=== PATIENT | female | born 1965 | race Caucasian/White ===

== ENCOUNTER 2025-01-02 08:46 | Emergency (ER) | payer BC, SELFPAY ==
[2025-01-02 08:55] VITALS: BP 127/86
--- NOTE | 2025-01-02 09:12 | EDRN ---
Pt in BR attempting urine spec at this time.
--- NOTE | 2025-01-02 09:15 | EDRN ---
Dr. Yao in room w/ pt.
--- NOTE | 2025-01-02 09:27 | ED.GENMED ---
History of Present Illness
General
Chief Complaint: Dizziness
Time Seen by Provider: 01/02/25 09:16
History of Present Illness
History of Present Illness:
Patient is a 59-year-old woman with history of anorexia, depression presenting to the emergency department feeling unwell. Patient is for the past week she has been having nausea mild posterior headache fatigue weakness chills decreased p.o. She
states that when she exerts herself she becomes short of breath and dizzy. Denies any chest pain. No palpitations. No leg swelling or hemoptysis. No vomiting. She has been constipated. No prior abdominal surgeries. No URI symptoms. She
denies any numbness tingling or weakness
Phy Exam
Physical Exam
Physical Exam:
GENERAL: in no acute distress
HEENT: normocephalic, extraocular movements intact, dry oral mucosa
NECK: normal inspection
RESPIRATORY: no respiratory distress, clear to auscultation bilaterally
CARDIOVASCULAR: regular rate and rhythm
ABDOMEN/: soft, non-distended, mild diffuse tenderness worse in the suprapubic region, no rebound or guarding
EXTREMITIES: non-tender, no edema/swelling
NEUROLOGIC: awake and alert, moves all extremities, equal strength in upper and lower extremities, sensation intact
SKIN: warm
Course
Orders/Labs/Results
Orders:
Orders
01/02/25 09:10
IV Insert/Care/Rem.- Treatment PRN
01/02/25 09:12
Electrocardiogram (*1) Urgent
Reason for Study: Chest Pain
Cardiac Monitoring- Treatment ONCE
EKG- Treatment ONCE
01/02/25 09:26
CT Abd/pelvis W Iv Cont Urgent
Comment:
Reason For Exam: nausea, abd pain
0.9% Sodium Chloride 1000 ml [Nss] 1,000 ml IV BOLUS
01/02/25 09:28
COVID-19 Antigen Urgent
Source: Nasal Swab
Complete Blood Count/With Diff Urgent
Lactic Acid Urgent
Influenza A+B Rapid Molecular Urgent
KASANDRA Source: Nasal Swab
Specimen Description:
01/02/25 09:29
Comprehensive Metabolic Panel Urgent
Magnesium Urgent
01/02/25 09:34
Urinalysis Reflex To Culture Urgent
Date Specimen was Collected: 01/02/25
Time Specimen was Collected: 09:27
01/02/25 11:02
Metoclopramide [Reglan] 10 mg IV NOW STA
Abnormal Lab Results
01/02/25 01/02/25 01/02/25
09:28 09:29 09:34
MCH 33.5 H pg
(27.0-31.0)
Absolute Lymphs (auto) 1.0 L 10^3/uL
(1.2-3.4)
Lymphocytes % 17.6 L %
(20.5-51.1)
Sodium 133 L mmol/L
(135-145)
Carbon Dioxide 19 L mmol/L
(22-30)
Glucose 117 H mg/dl
(70-99)
Magnesium 2.4 H mg/dl
(1.6-2.3)
Urine Ketones 1+ A
(Negative)
01/02/25 09:28
01/02/25 09:29
Vital Signs
Initial and Last Documented VS:
Initial Vital Signs
Temp Pulse Resp BP Pulse Ox
98.7 F 102 16 127/86 100
01/02/25 08:55 01/02/25 08:55 01/02/25 08:55 01/02/25 08:55 01/02/25 08:55
Last Documented Vital Signs
Temp Pulse Resp BP Pulse Ox
98.7 F 104 21 126/89 100
01/02/25 08:55 01/02/25 12:15 01/02/25 12:15 01/02/25 12:00 01/02/25 12:15
MDM/Problems Addressed
Differential Diagnosis Includes:
Patient is a 59-year-old woman with 1 week of generalized fatigue nausea headache weakness and dizziness upon exertion. Vitals are notable for heart rate in the 90s to 100. On exam she does have significantly dry oral mucosa and diffuse abdominal
tenderness worse in the suprapubic region. Differential is broad but consists of viral illness versus dehydration versus metabolic derangement versus malignancy or diverticulitis. The headache does not have any red flags such as sudden onset
thunderclap or headache of her life or associated with any meningismus. Will check blood work urine EKG CT scan of the abdomen. Will give IV fluids and obtain respiratory swabs.
*Critical Care Note
Total Time (30-74mins, 75-104mins- exclusive of procedures): Not Applicable
Update Note
Update Note:
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 Blood work notable for slightly low bicarb and urine positive for ketones. Likely starvation ketosis. She has been given IV fluids and is
tolerating p.o. She has been ambulatory without any recurrent symptoms. Patient advised to start taking MiraLAX to help with the constipation. Will discharge patient at this time. Strict return precautions given.
ED Attending Note
-
Portions of this chart may have been created with voice recognition software.� Occasional wrong word or��sound alike� substitutions may have occurred due to the inherent limitations of voice recognition software.
Discharge Plan
Departure
Patient Disposition: Home (Routine Discharge)
Date of Disposition: 01/02/25
Time of Disposition: 12:28
Patient with high blood pressure during this ER visit?: No
Discharge Problem:
Nausea, Dehydration, Constipation
Instructions: Constipation, Adult (DC)
Prescriptions:
No Action
penicillin V potassium 500 mg tablet
500 mg PO TID 7 Days Qty: 21 0RF
Referrals:
Derrek Lorenzana MD [Family Provider] -
Interventions
Interventions:
*Risk Screen - Suicide Last Done: 01/02/25 08:55
*General Assessment Last Done: 01/02/25 08:55
*Neglect/Abuse Screening Last Done: 01/02/25 08:55
*ED- Fall Risk Assessment Last Done: 01/02/25 08:55
*ED COVID-19 Vaccine History Last Done: 01/02/25 08:55
ED- Neurological Assessment Last Done: 01/02/25 09:56
ED- Cardiac Assessment Last Done: 01/02/25 09:56
N[place]-Wblfqc-Ufpcexrwfz Assessment Last Done: 01/02/25 09:56
ED Swallowing Screen Last Done: 01/02/25 09:06
Discharge Date and Time
Print Language: JAMAICAN
[2025-01-02 09:43] LABS: % Basophils 0.7 % (0-2); % Eosinophils 1.4 % (0-6); % Immature Granulocytes 0.3 % (0-0.5); % Lymphocytes 17.6 % (20.5-51.1); % Monocytes 7.1 % (1.7-9.3); % Neutrophils 72.9 % (42.2-75.2); Absolute Eosinophils 0.1 10^3/uL (0-0.7); Absolute Monocytes 0.4 10^3/uL (0.1-0.6); Absolute Neutrophils 4.3 10^3/uL (1.4-6.5); Hematocrit 40.1 % (37.0-47.0); Hemoglobin 14.2 g/dL (12.0-16.0); Mean Corp Hgb Conc. 35.4 g/dL (33.0-37.0); Mean Corpuscular Hgb 33.5 pg (27.0-31.0); Mean Corpuscular Volume 94.6 fL (81.0-99.0); Mean Platelet Volume 9.3 fL (7.4-10.4); Nucleated Red Blood Cells % 0 %; Platelet Count 285 10^3/uL (130-400); Red Blood Cell Count 4.24 10^6/uL (4.20-5.40); Red Cell Dist. Width 12.2 % (11.5-14.5); White Blood Cell Count 5.9 10^3/uL (4.8-10.8)
[2025-01-02 09:44] LABS: Urine Albumin Negative (Neg - Trace); Urine Bilirubin Negative (Negative); Urine Character Clear (Clear); Urine Color Yellow; Urine Glucose Negative (Negative); Urine Ketone 1+ (Negative); Urine Leukocyte Negative (Negative); Urine Nitrite Negative (Negative); Urine Occult Blood Negative (Negative); Urine Urobilinogen Negative (Neg - 1+)
[2025-01-02 09:55] LABS: Lactic Acid 1.4 mmol/L (0.7-2.0)
[2025-01-02 09:56] LABS: ALT (SGPT) 15 U/L (0-35); AST (SGOT) 18 U/L (14-36); Albumin 4.6 g/dl (3.5-5.0); Alkaline Phosphatase 63 U/L (38-126); Blood Urea Nitrogen 9 mg/dl (7-17); Carbon Dioxide 19 mmol/L (22-30); Chloride 102 mmol/L (98-107); Estimated Creatinine Clearance 56 ml/min; Glucose 117 mg/dl (70-99); Magnesium 2.4 mg/dl (1.6-2.3); Potassium 4.3 mmol/L (3.5-5.1); Sodium 133 mmol/L (135-145); Total Bilirubin 0.9 mg/dl (0.2-1.3); Total Protein 7.2 g/dl (6.3-8.2); eGFR > 60.00
[2025-01-02 10:01] VITALS: BP 132/99
[2025-01-02 10:01] LABS: COVID-19 Antigen Negative (Negative)
[2025-01-02] MEDS: NSS 1000 IV (11:20)
[2025-01-02] MEDS: REGLAN 10 MG IV (11:21)
[2025-01-02 11:23] VITALS: BP 130/83
[2025-01-02 12:00] VITALS: BP 126/89
--- NOTE | 2025-01-02 12:18 | EDRN ---
Pt states she has been drinking okay though still has nausea, saying it has not gone away. Dr. Yao informed via TT at this time. Pt speaking w/ someone on cell phone at this time looking very comfortable on stretcher.
== END 2025-01-02 12:55 | disposition home or self-care (01) ==
LOC: EMR 08:46
PROVIDERS: Emergency Medicine; EMERGENCY PHYSICIAN Student in an Organized Health Care Education/Training Program; FAMILY PHYSICIAN Internal Medicine
DX: E86.0 Dehydration (principal); R11.0 Nausea; K59.00 Constipation, unspecified; Z11.52 Encounter for screening for COVID-19
CPT/HCPCS: 99284; 96374; 96361; 74177; 80053; 81003; 83605; 83735; 85025; 87502; 87811; 93005; Q9967

== ENCOUNTER 2025-01-27 15:51 | Emergency (ER) | payer BC, SELFPAY ==
[2025-01-27 15:58] VITALS: BP 142/94
[2025-01-27 16:38] VITALS: BMI 19.4
[2025-01-27 16:42] VITALS: BP 137/85
--- NOTE | 2025-01-27 16:56 | ED.GENMED ---
History of Present Illness
<YANNI Dawson - Last Filed: 01/28/25 18:37>
General
Chief Complaint: Abdominal Symptoms
Source: patient
Exam Limitations: none
Time Seen by Provider: 01/27/25 16:29
Nursing documentation reviewed up to this point in time: agreed with
History of Present Illness
History of Present Illness:
Patient is a 59-year-old female with past medical history of anorexia chronic constipation anxiety depression who presents to the ER with complaint of persistent nausea and abdominal bloating/discomfort. She reports she has had nausea /abdominal
bloating for the past month and a half. She was seen here for nausea and abdominal pain January 02 and had a CAT scan. 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
She has been to urgent care several times and also has been diagnosed with constipation and has been taking MiraLAX. She last had a bowel movement several days ago.
She has been taking Zofran for the nausea sometimes it helps and sometimes it does not.
She has never had a colonoscopy.
In addition to nausea pt has also had a headache for the past one month as well.
Review of Systems
<YANNI Dawson - Last Filed: 01/28/25 18:37>
Review of Systems
Allergies reviewed?: Yes
All Other Systems: ROS reviewed and negative except as documented in HPI and ROS
Constitutional: Reports no symptoms; Denies fever, fatigue or chills
EENT: Reports no symptoms
Respiratory: Reports no symptoms
Cardiac: Reports no symptoms
ABD/GI: Reports nausea, constipated and other (abdominal bloating )
: Reports no symptoms
Musculoskeletal: Reports no symptoms
Skin: Reports no symptoms
Neurological: Reports no symptoms
Hematologic/Lymphatic: Reports no symptoms
Psychiatric: Reports no symptoms
Phy Exam
<YANNI Dawson - Last Filed: 01/28/25 18:37>
General Physical Exam
General Presentation: no apparent distress
General age: appears stated age
General Skin: warm and dry
General Habitus: elderly
General Mental: alert
General Hydration: dry mucous membranes
ENT Exam
ENT Exam: EOMI and neck supple
Cardiovascular Exam
Cardiovascular Exam: regular rate/rhythm, no murmur and normal peripheral pulses
Pulmonary Exam
Pulmonary Exam: lungs clear and no respiratory distress
Gastrointestinal Exam
Gastrointestinal Exam: non tender and soft
Neurological Exam
Neurological Exam: alert and oriented x3
Musculoskeletal Exam
Musculoskeletal Exam: full ROM
Skin Exam
Skin Exam: normal color and warm/dry
Psychiatric Exam
Psychiatric Exam: normal mood/affect
Course
<YANNI Dawson - Last Filed: 01/28/25 18:37>
Orders/Labs/Results
Orders:
Orders
01/27/25 16:50
CMP [Comprehensive Metabolic Panel] Urgent
Complete Blood Count/With Diff Urgent
01/27/25 17:13
IV Insert/Care/Rem.- Treatment PRN
0.9% Sodium Chloride 1000 ml [Nss] 1,000 ml IV BOLUS
Ondansetron Injectable [Zofran] 4 mg IV NOW STA
01/27/25 17:14
CT Head W/o Iv Contrast Urgent
Comment:
Reason For Exam: headache/nausea
01/27/25 17:58
Urinalysis Reflex To Culture Urgent
Date Specimen was Collected: 01/27/25
Time Specimen was Collected: 17:50
Urine Microscopic Reflex Cult Urgent
Urine Culture Urgent
KASANDRA Source: U
Specimen Description:
Date Specimen was Collected: 01/27/25
Time Specimen was Collected: 17:50
01/27/25 17:59
Electrocardiogram (*1) Stat
Reason for Study: Other
Other Reason for Exam: chest pain
EKG- Treatment ONCE
01/27/25 18:29
Diphenhydramine [Benadryl] 25 mg IV NOW STA
Metoclopramide [Reglan] 10 mg IV NOW STA
Abnormal Lab Results
01/27/25 01/27/25
16:50 17:58
RBC 4.01 L 10^6/uL
(4.20-5.40)
MCH 33.9 H pg
(27.0-31.0)
Absolute Lymphs (auto) 1.1 L 10^3/uL
(1.2-3.4)
Lymphocytes % 19.9 L %
(20.5-51.1)
Monocytes % 10.1 H %
(1.7-9.3)
Leukocyte Esterase Rfl 1+ A
(Negative)
Urine Bacteria (Reflex) Many A
(Negative)
Urine Albumin (Reflex) 1+ A
(Neg - Trace)
01/27/25 16:50
01/27/25 16:50
Vital Signs
Initial and Last Documented VS:
Initial Vital Signs
Temp Pulse Resp BP Pulse Ox
97.8 F 102 16 142/94 100
01/27/25 15:58 01/27/25 15:58 01/27/25 15:58 01/27/25 15:58 01/27/25 15:58
Last Documented Vital Signs
Temp Pulse Resp BP Pulse Ox
97.8 F 90 18 125/89 100
01/27/25 15:58 01/27/25 19:25 01/27/25 19:25 01/27/25 19:25 01/27/25 19:25
Junior Web Designer consulted with Physician
Junior Web Designer consulted with physician?: Yes
Name of Physician Consulted: Denia
<Mena Loza MD - Last Filed: 04/02/25 19:55>
Orders/Labs/Results
Orders:
Orders
01/27/25 16:50
CMP [Comprehensive Metabolic Panel] Urgent
Complete Blood Count/With Diff Urgent
01/27/25 17:13
IV Insert/Care/Rem.- Treatment PRN
0.9% Sodium Chloride 1000 ml [Nss] 1,000 ml IV BOLUS
Ondansetron Injectable [Zofran] 4 mg IV NOW STA
01/27/25 17:14
CT Head W/o Iv Contrast Urgent
Comment:
Reason For Exam: headache/nausea
01/27/25 17:58
Urinalysis Reflex To Culture Urgent
Date Specimen was Collected: 01/27/25
Time Specimen was Collected: 17:50
Urine Microscopic Reflex Cult Urgent
Urine Culture Urgent
KASANDRA Source: U
Specimen Description:
Date Specimen was Collected: 01/27/25
Time Specimen was Collected: 17:50
01/27/25 17:59
Electrocardiogram (*1) Stat
Reason for Study: Other
Other Reason for Exam: chest pain
EKG- Treatment ONCE
01/27/25 18:29
Diphenhydramine [Benadryl] 25 mg IV NOW STA
Metoclopramide [Reglan] 10 mg IV NOW STA
Abnormal Lab Results
01/27/25 01/27/25
16:50 17:58
RBC 4.01 L 10^6/uL
(4.20-5.40)
MCH 33.9 H pg
(27.0-31.0)
Absolute Lymphs (auto) 1.1 L 10^3/uL
(1.2-3.4)
Lymphocytes % 19.9 L %
(20.5-51.1)
Monocytes % 10.1 H %
(1.7-9.3)
Leukocyte Esterase Rfl 1+ A
(Negative)
Urine Bacteria (Reflex) Many A
(Negative)
Urine Albumin (Reflex) 1+ A
(Neg - Trace)
01/27/25 16:50
01/27/25 16:50
Vital Signs
Initial and Last Documented VS:
Initial Vital Signs
Temp Pulse Resp BP Pulse Ox
97.8 F 102 16 142/94 100
01/27/25 15:58 01/27/25 15:58 01/27/25 15:58 01/27/25 15:58 01/27/25 15:58
Last Documented Vital Signs
Temp Pulse Resp BP Pulse Ox
97.8 F 90 18 125/89 100
01/27/25 15:58 01/27/25 19:25 01/27/25 19:25 01/27/25 19:25 01/27/25 19:25
<YANNI Dawson - Last Filed: 01/28/25 18:37>
MDM/Problems Addressed
MDM/Problems Addressed:
Patient is document is a 59-year-old female who presents for nausea and intermittent constipation for the past month and a half. She was seen here January 02 and had abdominal CAT scan. Despite Zofran at home she still is intermittently nauseous.
She has not seen her family doctor who currently is in [place] she resides here. She has not been seen by GI specialist. She presents awake alert no acute distress flat affect tearful. CAT scan was reviewed from January 02 which does not show
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 She continues to complain of headache that she feels is associate with nausea. She has a normal neurologic exam no acute findings on CAT
scan however there are calcifications in the lateral ventricles and fourth ventricle which may be secondary to prior hemorrhage or infection or possibly physiologic consider MRI for outpatient is recommended. Patient will need to follow-up with a
family doctor for this is also recommended that she follow-up with GI. Patient was given Reglan for nausea and fluids. she is afebrile with a normal white count stable hemoglobin normal chemistries no acute infection urine. CAT scan was not
repeated of abdomen today she mainly complains of nausea and whether she simply constipated she is taking MiraLAX and has moving her bowels quite frequently.
Patient received Reglan here and fluids,
I did review with the patient the importance of following up for CAT scan of her head with her family doctor. she does have an upcoming appointment with a family doctor scheduled. In addition we will place patient with a GI hotline. She does
have Zofran at home.
No acute cause of patient's symptoms identified here but she will need further workup. I did review this with her. Patient was evaluated physician.
<YANNI Dawson - Last Filed: 01/28/25 18:37>
*Pulse Oximetry
Patient hypoxic: no
*Critical Care Note
Total Time (30-74mins, 75-104mins- exclusive of procedures): Not Applicable
Data Reviewed
Review of Other/Old Records Reveals: Labs, Radiology Studies and Other (Prior ED visit )
ED Attending Note
<YANNI Dawson - Last Filed: 01/28/25 18:37>
-
Portions of this chart may have been created with voice recognition software.� Occasional wrong word or��sound alike� substitutions may have occurred due to the inherent limitations of voice recognition software.
<Mena Loza MD - Last Filed: 01/27/25 19:55>
ED Attending Note
Patient seen and examined by attending physician: Yes
I performed the substantive portion of visit, reviewed & personally made and approve the management plan that is documented in note by myself or DAVE.: Yes
Discharge Plan
Departure
Patient Disposition: Home (Routine Discharge)
Date of Disposition: 01/27/25
Time of Disposition: 19:41
Patient with high blood pressure during this ER visit?: Yes
Condition: Fair
Covid-19: Not Applicable
Discharge Problem:
Nausea, Headache
Instructions: Nausea and Vomiting, Adult (DC), Headache in adults - ED discharge instructions, BLOOD PRESSURE
Prescriptions:
No Action
bupropion HCl 150 mg Tablet Sustained-Release 12 Hr
150 mg PO TID
ibuprofen [Advil] 200 mg Tablet
200 mg PO Q6HPRN PRN (Reason: mild pain)
ondansetron 4 mg Tablet,Disintegrating
4 mg PO Q6HPRN PRN (Reason: nausea)
loratadine 10 mg Tablet
10 mg PO DAILYPRN PRN (Reason: allergies)
Referrals:
Derrek Lorenzana MD [Family Provider] -
Donya Valdez MD [Active] -
Activity Restrictions/Additional Instructions:
As discussed please follow-up with your family doctor as scheduled.
Please review your CAT scan findings with your family doctor; it is likely you may need further additional testing including outpatient MRI.
Also please follow-up with GI. The GI frontend engineer may call you however if you do not receive a phone call from the GI frontend engineer please give the GI office a call to schedule an appointment as soon as possible.
Return if any worsening of symptoms
Interventions
Interventions:
*Risk Screen - Suicide Last Done: 01/27/25 16:39
*General Assessment Last Done: 01/27/25 16:39
*Neglect/Abuse Screening Last Done: 01/27/25 16:39
*ED- Fall Risk Assessment Last Done: 01/27/25 16:39
*ED COVID-19 Vaccine History Last Done: 01/27/25 16:39
*Nursing Disposition Last Done: 01/27/25 20:24
UI-Kbwsqw-Lygvfcvptc Assessment Last Done: 01/27/25 16:45
Discharge Date and Time
Discharge Date/Time: 01/27/25 20:25
Print Language: FINNISH
[2025-01-27 17:06] LABS: % Basophils 0.9 % (0-2); % Eosinophils 2.9 % (0-6); % Immature Granulocytes 0.4 % (0-0.5); % Lymphocytes 19.9 % (20.5-51.1); % Monocytes 10.1 % (1.7-9.3); % Neutrophils 65.8 % (42.2-75.2); Absolute Basophils 0.1 10^3/uL (0-0.2); Absolute Eosinophils 0.2 10^3/uL (0-0.7); Absolute Lymphocytes 1.1 10^3/uL (1.2-3.4); Absolute Monocytes 0.6 10^3/uL (0.1-0.6); Absolute Neutrophils 3.6 10^3/uL (1.4-6.5); Hematocrit 38.1 % (37.0-47.0); Hemoglobin 13.6 g/dL (12.0-16.0); Mean Corp Hgb Conc. 35.7 g/dL (33.0-37.0); Mean Corpuscular Hgb 33.9 pg (27.0-31.0); Mean Platelet Volume 9.4 fL (7.4-10.4); Nucleated Red Blood Cells % 0 %; Platelet Count 248 10^3/uL (130-400); Red Blood Cell Count 4.01 10^6/uL (4.20-5.40); Red Cell Dist. Width 12.1 % (11.5-14.5); White Blood Cell Count 5.5 10^3/uL (4.8-10.8)
[2025-01-27 17:13] LABS: ALT (SGPT) 14 U/L (0-35); AST (SGOT) 17 U/L (14-36); Albumin 4.1 g/dl (3.5-5.0); Alkaline Phosphatase 50 U/L (38-126); Blood Urea Nitrogen 12 mg/dl (7-17); Calcium 9.6 mg/dl (8.4-10.2); Carbon Dioxide 24 mmol/L (22-30); Chloride 105 mmol/L (98-107); Estimated Creatinine Clearance 55 ml/min; Glucose 95 mg/dl (70-99); Potassium 3.7 mmol/L (3.5-5.1); Sodium 138 mmol/L (135-145); Total Bilirubin 0.7 mg/dl (0.2-1.3); Total Protein 6.5 g/dl (6.3-8.2); eGFR > 60.00
[2025-01-27 17:52] VITALS: BP 127/82
[2025-01-27] MEDS: NSS 1000 IV (17:55)
[2025-01-27 18:11] LABS: Urine Albumin 1+ (Neg - Trace); Urine Bilirubin Negative (Negative); Urine Character Clear (Clear); Urine Color Yellow; Urine Glucose Negative (Negative); Urine Ketone Negative (Negative); Urine Leukocyte 1+ (Negative); Urine Nitrite Negative (Negative); Urine Occult Blood Negative (Negative); Urine Urobilinogen Negative (Neg - 1+)
[2025-01-27 18:19] LABS: Urine Squamous Cell 0-2 /LPF (Few)
[2025-01-27 18:20] LABS: Urine Bacteria Many (Negative); Urine Calcium Oxalate Crystals Present; Urine Red Blood Cell 0-2 /HPF (0-2)
[2025-01-27] MEDS: REGLAN 10 MG IV (18:43)
[2025-01-27 19:25] VITALS: BP 125/89
== END 2025-01-27 20:25 | disposition home or self-care (01) ==
LOC: EMR 15:51
PROVIDERS: Nurse Practitioner; EMERGENCY PHYSICIAN Emergency Medicine; FAMILY PHYSICIAN Internal Medicine
DX: R11.0 Nausea (principal); R51.9 Headache, unspecified; K59.00 Constipation, unspecified
CPT/HCPCS: 96374; 96361; 99284; 70450; 80053; 81003; 81015; 85025; 87086; 93005

== ENCOUNTER 2025-02-17 06:27 | Day surgery (SDC) | payer BC, SELFPAY | END 2025-02-17 13:51 | disposition home or self-care (01) | LOC: GI 06:27 | PROVIDERS: ATTENDING PHYSICIAN Internal Medicine Gastroenterology | DX: R10.13 Epigastric pain (principal); R11.0 Nausea; R63.4 Abnormal weight loss; K44.9 Diaphragmatic hernia without obstruction or gangrene | CPT/HCPCS: 43235 ==

== ENCOUNTER 2025-02-26 13:50 | Emergency (ER) | payer BC, SELFPAY ==
[2025-02-26 13:52] VITALS: BP 131/95
--- NOTE | 2025-02-26 16:22 | ED.GENMED ---
History of Present Illness
General
Chief Complaint: Anxiety
Source: patient
Exam Limitations: none
Time Seen by Provider: 02/26/25 16:00
History of Present Illness
History of Present Illness:
See MDM
Past History
Past History
ED Past Medical History: Psychiatric
ED Past Surgical History: Other (Dental)
Social History
Tobacco: Non-smoker
Alcohol: None
Phy Exam
Physical Exam
Physical Exam:
See MDM
Course
Orders/Labs/Results
Orders:
Orders
02/26/25 16:20
Crisis Consult Urgent
Reason for Consult: depression
0.9% Sodium Chloride 1000 ml [Nss] 1,000 ml IV BOLUS
Lorazepam [Ativan] 0.5 mg IV NOW STA
02/26/25 16:21
Electrocardiogram (*1) Urgent
Reason for Study: Chest Pain
EKG- Treatment ONCE
02/26/25 16:34
Complete Blood Count/With Diff Urgent
Comprehensive Metabolic Panel Urgent
Magnesium Urgent
Abnormal Lab Results
02/26/25
16:34
RBC 4.03 L 10^6/uL
(4.20-5.40)
MCH 33.7 H pg
(27.0-31.0)
Absolute Lymphs (auto) 1.1 L 10^3/uL
(1.2-3.4)
Lymphocytes % 17.9 L %
(20.5-51.1)
Monocytes % 9.4 H %
(1.7-9.3)
Glucose 136 H mg/dl
(70-99)
Magnesium 2.4 H mg/dl
(1.6-2.3)
02/26/25 16:34
02/26/25 16:34
Vital Signs
Initial and Last Documented VS:
Initial Vital Signs
Temp Pulse Resp BP Pulse Ox
98.2 F 113 16 131/95 97
02/26/25 13:52 02/26/25 13:52 02/26/25 13:52 02/26/25 13:52 02/26/25 13:52
Last Documented Vital Signs
Temp Pulse Resp BP Pulse Ox
98.2 F 97 18 123/83 98
02/26/25 13:52 02/26/25 16:55 02/26/25 16:55 02/26/25 16:55 02/26/25 16:55
MDM/Problems Addressed
Differential Diagnosis Includes:
HPI and MDM Narrative:
59-year-old female presenting for evaluation of depression. Patient states she is not doing well mentally. She denies suicidal or homicidal thoughts. On exam, she does appear depressed. Her friend convinced her to come to the hospital. She does
have a prior history of anorexia and recently has decreased p.o. intake.
She has multiple complaints. She complains of anxiety, depression, insomnia, chest pressure and abdominal pain. She has had negative workup in the past. Patient is interested in speaking to crisis
Physical exam
General: Well appearing and non-toxic
HEENT: protecting airway. Dry mucous membranes
Neck: appears supple
CV: No evidence of cyanosis
Resp: No accessory muscle use
Abd: Non-distended
Extremities: No deformities
Neuro: alert
Psych: depressed affect
Skin: Intact
Problems Addressed including Acute and Chronic Conditions affecting care:
1. Depression
Acuity: acute
Prognosis: stable
Details: Will give dose of Ativan and have crisis evaluate
2. Decreased p.o. intake
Acuity: acute
Prognosis: stable
Details: Obtain basic blood work. For electrolyte abnormalities
Updates
Crisis will set up intensive outpatient. Patient feels comfortable with discharge and feeling better after Ativan.
Differential Diagnosis (but not limited to): Anxiety, depression, malnutrition
Testing considered: Troponin
Drug therapy (if applicable): OTC meds, please see d/c instruction regarding Rx drugs
Amount and/or Complexity of Data Reviewed
Clinical info obtained from: Patient
External data reviewed: N/A
Labs I independently reviewed (but not limited to): Sodium level normal
Radiology: N/A
Pulse Ox: not hypoxic
EKG independently reviewed: Sinus rhythm, normal axis, no STEMI
Food Counter Attendant: N/A
Critical Care: N/A
Risk of Complication:
Social Determinants of health: Good social support
Discussed with other providers: N/A
Escalation of Care includes Admit/Obs: After being observed in the Emergency Department, pt stable for discharge.
Occasional wrong word or 'sound a like' substitutions may have occurred due to the inherent limitations of voice recognition software. Read the chart carefully and recognize, using context, where substitutions have occurred.
*Critical Care Note
Total Time (30-74mins, 75-104mins- exclusive of procedures): Not Applicable
ED Attending Note
-
Portions of this chart may have been created with voice recognition software.� Occasional wrong word or��sound alike� substitutions may have occurred due to the inherent limitations of voice recognition software.
Discharge Plan
Departure
Patient Disposition: Home (Routine Discharge)
Date of Disposition: 02/26/25
Time of Disposition: 19:18
Patient with high blood pressure during this ER visit?: No
Discharge Problem:
Depression
Instructions: Depression, Adult (DC)
Prescriptions:
New
hydroxyzine HCl 25 mg tablet
25 mg PO BID PRN (Reason: anxiety) Qty: 20 0RF
No Action
bupropion HCl 150 mg Tablet Sustained-Release 12 Hr
150 mg PO TID
ibuprofen [Advil] 200 mg Tablet
200 mg PO Q6HPRN PRN (Reason: mild pain)
ondansetron 4 mg Tablet,Disintegrating
4 mg PO Q6HPRN PRN (Reason: nausea)
loratadine 10 mg Tablet
10 mg PO DAILYPRN PRN (Reason: allergies)
Referrals:
NONE,* [Family Provider] -
Activity Restrictions/Additional Instructions:
Please return for any worsening symptoms.
You may return at any time if you have further concerns.
Please follow up with your doctor at the first available appointment, preferably this week.
Thank you for choosing [facility].
Interventions
Interventions:
*Risk Screen - Suicide Last Done: 02/26/25 13:51
*Neglect/Abuse Screening Last Done: 02/26/25 13:52
*ED- Fall Risk Assessment Last Done: 02/26/25 16:56
ED-Psychological Assessment Last Done: 02/26/25 16:46
Discharge Date and Time
Print Language: JAPANESE
[2025-02-26] MEDS: NSS 1000 IV (16:34)
[2025-02-26] MEDS: ATIVAN 0.5 MG IV (16:35)
[2025-02-26 16:49] LABS: % Basophils 0.5 % (0-2); % Eosinophils 1.5 % (0-6); % Immature Granulocytes 0.3 % (0-0.5); % Lymphocytes 17.9 % (20.5-51.1); % Monocytes 9.4 % (1.7-9.3); % Neutrophils 70.4 % (42.2-75.2); Absolute Eosinophils 0.1 10^3/uL (0-0.7); Absolute Lymphocytes 1.1 10^3/uL (1.2-3.4); Absolute Monocytes 0.6 10^3/uL (0.1-0.6); Absolute Neutrophils 4.2 10^3/uL (1.4-6.5); Hematocrit 38.1 % (37.0-47.0); Hemoglobin 13.6 g/dL (12.0-16.0); Mean Corp Hgb Conc. 35.7 g/dL (33.0-37.0); Mean Corpuscular Hgb 33.7 pg (27.0-31.0); Mean Corpuscular Volume 94.5 fL (81.0-99.0); Mean Platelet Volume 9.2 fL (7.4-10.4); Nucleated Red Blood Cells % 0 %; Platelet Count 301 10^3/uL (130-400); Red Blood Cell Count 4.03 10^6/uL (4.20-5.40); Red Cell Dist. Width 12.5 % (11.5-14.5)
[2025-02-26 16:55] VITALS: BP 123/83
[2025-02-26 16:58] LABS: ALT (SGPT) 17 U/L (0-35); AST (SGOT) 19 U/L (14-36); Albumin 4.5 g/dl (3.5-5.0); Alkaline Phosphatase 42 U/L (38-126); Blood Urea Nitrogen 8 mg/dl (7-17); Calcium 9.8 mg/dl (8.4-10.2); Carbon Dioxide 22 mmol/L (22-30); Chloride 102 mmol/L (98-107); Glucose 136 mg/dl (70-99); Magnesium 2.4 mg/dl (1.6-2.3); Potassium 4.2 mmol/L (3.5-5.1); Sodium 136 mmol/L (135-145); Total Bilirubin 0.9 mg/dl (0.2-1.3); Total Protein 7.1 g/dl (6.3-8.2); eGFR > 60.00
== END 2025-02-26 19:44 | disposition home or self-care (01) ==
LOC: EMR 13:50
PROVIDERS: EMERGENCY PHYSICIAN Student in an Organized Health Care Education/Training Program
DX: F32.A Depression, unspecified (principal)
CPT/HCPCS: 99284; 96374; 96361; 80053; 83735; 85025; 93005

== ENCOUNTER 2025-04-06 10:27 | Emergency (ER) | payer BC, SELFPAY ==
[2025-04-06 10:29] VITALS: BP 118/84
--- NOTE | 2025-04-06 12:02 | ED.GENMED ---
History of Present Illness
General
Chief Complaint: Suicidal Ideation
Source: patient
Time Seen by Provider: 04/06/25 11:37
Nursing documentation reviewed up to this point in time: agreed with
History of Present Illness
History of Present Illness:
The patient is a 59-year-old female with a history of anxiety, depression, eating disorders presents with anxiety and depressive symptoms, and she is currently experiencing suicidal ideation.
She has been managing anxiety and depression through intensive outpatient therapy three days a week, including both group therapy and one-on-one sessions. Despite this, her mental health does not seem to be improving, and she reports feeling unable
to live alone due to instability in her mood and health. The patient has a history of panic attacks and in addition has had chronic nausea. She was evaluated by GI for this and they did diagnose her with a hernia
Her medication regimen has recently shifted. She has been prescribed Bupropion for about 20 years but is currently being weaned off it and has been started on Buspirone, Remeron, and Hydroxyzine. Patient's friend at bedside reports she called her
today
And stated that she was very depressed and thought about taking pills which is what prompted her friend to bring her here to [place].
Past History
Past History
ED Past Medical History: Psychiatric
ED Past Surgical History: Other (Dental)
Social History
Tobacco: Non-smoker
Alcohol: None
Review of Systems
Review of Systems
Allergies reviewed?: Yes
All Other Systems: ROS reviewed and negative except as documented in HPI and ROS
Constitutional: Reports no symptoms; Denies fever, fatigue or chills
EENT: Reports no symptoms
Respiratory: Reports no symptoms
Cardiac: Reports no symptoms
ABD/GI: Reports nausea
: Reports no symptoms
Musculoskeletal: Reports no symptoms
Skin: Reports no symptoms
Neurological: Reports no symptoms
Psychiatric: Reports depression and suicidal
Phy Exam
General Physical Exam
General Presentation: no apparent distress
General age: appears stated age
General Skin: warm and dry
General Habitus: normal
General Mental: alert
General Hydration: appears well hydrated
Cardiovascular Exam
Cardiovascular Exam: regular rate/rhythm, no murmur and normal peripheral pulses
Pulmonary Exam
Pulmonary Exam: lungs clear and no respiratory distress
Neurological Exam
Neurological Exam: alert
Course
Orders/Labs/Results
Orders:
Orders
04/06/25 10:36
1:1 Observation - Suicide/ Violent Behavior As Directed
Crisis Consult Urgent
Reason for Consult: SI
04/06/25 14:03
Complete Blood Count/With Diff Urgent
Comprehensive Metabolic Panel Urgent
04/06/25 14:04
Urine Drug Abuse Screen Urgent
Date Specimen was Collected: 04/06/25
Time Specimen was Collected: 14:02
Abnormal Lab Results
04/06/25
14:03
RBC 3.97 L 10^6/uL
(4.20-5.40)
MCH 34.5 H pg
(27.0-31.0)
Absolute Lymphs (auto) 1.1 L 10^3/uL
(1.2-3.4)
Monocytes % 9.9 H %
(1.7-9.3)
Chloride 108 H mmol/L
(98-107)
BUN 19 H mg/dl
(7-17)
Glucose 141 H mg/dl
(70-99)
04/06/25 14:03
04/06/25 14:03
Vital Signs
Initial and Last Documented VS:
Initial Vital Signs
Temp Pulse Resp BP Pulse Ox
98.8 F 122 20 118/84 97
04/06/25 10:29 04/06/25 10:29 04/06/25 10:29 04/06/25 10:29 04/06/25 10:29
Last Documented Vital Signs
Temp Pulse Resp BP Pulse Ox
98.8 F 122 20 134/82 97
04/06/25 10:29 04/06/25 10:29 04/06/25 10:29 04/06/25 14:48 04/06/25 10:29
MDM/Problems Addressed
Differential Diagnosis Includes:
Not limited to depression anxiety eating disorder
MDM/Problems Addressed:
Patient was evaluated by crisis and will be placed in [facility] program , inpatient /partial . Pt cooperative here and in no distress
Chronic conditions affecting care:
depression /eating disorder
*Critical Care Note
Total Time (30-74mins, 75-104mins- exclusive of procedures): Not Applicable
ED Attending Note
-
Portions of this chart may have been created with voice recognition software.� Occasional wrong word or��sound alike� substitutions may have occurred due to the inherent limitations of voice recognition software.
Discharge Plan
Departure
Patient Disposition: Psych Facility
Date of Disposition: 04/06/25
Time of Disposition: 14:03
Patient with high blood pressure during this ER visit?: No
Condition: Fair
Covid-19: Not Applicable
Discharge Problem:
Suicidal ideation
Prescriptions:
No Action
bupropion HCl 150 mg Tablet Sustained-Release 12 Hr
150 mg PO TID
ibuprofen [Advil] 200 mg Tablet
200 mg PO Q6HPRN PRN (Reason: mild pain)
ondansetron 4 mg Tablet,Disintegrating
4 mg PO Q6HPRN PRN (Reason: nausea)
loratadine 10 mg Tablet
10 mg PO DAILYPRN PRN (Reason: allergies)
hydroxyzine HCl 25 mg tablet
25 mg PO BID PRN (Reason: anxiety) Qty: 20 0RF
Referrals:
NONE,* [Family Provider, Internal Medicine]
Interventions
Interventions:
*Risk Screen - Suicide Last Done: 04/06/25 10:29
*General Assessment Last Done: 04/06/25 12:27
*Neglect/Abuse Screening Last Done: 04/06/25 15:02
*ED COVID-19 Vaccine History Last Done: 04/06/25 12:27
*Nursing Disposition Last Done: 04/06/25 15:02
QV-Anxzqh-Yktvshwcai Assessment Last Done: 04/06/25 11:40
ED-Psychological Assessment Last Done: 04/06/25 11:40
Discharge Date and Time
Discharge Date/Time: 04/06/25 15:02
Print Language: ANGUILLAN
[2025-04-06 14:12] LABS: % Basophils 0.7 % (0-2); % Eosinophils 0.6 % (0-6); % Immature Granulocytes 0.4 % (0-0.5); % Lymphocytes 20.7 % (20.5-51.1); % Monocytes 9.9 % (1.7-9.3); % Neutrophils 67.7 % (42.2-75.2); Absolute Lymphocytes 1.1 10^3/uL (1.2-3.4); Absolute Monocytes 0.5 10^3/uL (0.1-0.6); Absolute Neutrophils 3.6 10^3/uL (1.4-6.5); Hematocrit 38.6 % (37.0-47.0); Hemoglobin 13.7 g/dL (12.0-16.0); Mean Corp Hgb Conc. 35.5 g/dL (33.0-37.0); Mean Corpuscular Hgb 34.5 pg (27.0-31.0); Mean Corpuscular Volume 97.2 fL (81.0-99.0); Nucleated Red Blood Cells % 0 %; Platelet Count 270 10^3/uL (130-400); Red Blood Cell Count 3.97 10^6/uL (4.20-5.40); Red Cell Dist. Width 12.3 % (11.5-14.5); White Blood Cell Count 5.4 10^3/uL (4.8-10.8)
[2025-04-06 14:32] LABS: Amphetamines Negative (Negative); Barbiturates Negative (Negative); Benzodiazepines Negative (Negative); Buprenorphine Negative (Negative); Cocaine Negative (Negative); Marijuana Negative (Negative); Methadone Negative (Negative); Methamphetamines Negative (Negative); Opiates Negative (Negative); Phencyclidine Negative (Negative); Tricyclic Antidepressants Negative (Negative)
[2025-04-06 14:48] VITALS: BP 134/82
[2025-04-06 14:49] LABS: ALT (SGPT) 28 U/L (0-35); AST (SGOT) 26 U/L (14-36); Albumin 4.4 g/dl (3.5-5.0); Alkaline Phosphatase 48 U/L (38-126); Blood Urea Nitrogen 19 mg/dl (7-17); Carbon Dioxide 26 mmol/L (22-30); Chloride 108 mmol/L (98-107); Glucose 141 mg/dl (70-99); Potassium 4.1 mmol/L (3.5-5.1); Sodium 143 mmol/L (135-145); Total Bilirubin 0.4 mg/dl (0.2-1.3); Total Protein 6.9 g/dl (6.3-8.2); eGFR > 60.00
== END 2025-04-06 15:02 ==
LOC: EMR 10:27
PROVIDERS: Nurse Practitioner; EMERGENCY PHYSICIAN Emergency Medicine
DX: R45.851 Suicidal ideations (principal); F41.8 Other specified anxiety disorders; F41.0 Panic disorder [episodic paroxysmal anxiety]; F50.9 Eating disorder, unspecified
CPT/HCPCS: 99283; 80053; 80306; 85025